=== PATIENT | female | born 1965 | race Two or more races ===

== ENCOUNTER 2024-08-11 00:35 | Emergency (ER) | payer OTHER ==
[~2024-08-11] VITALS: Ht 170.2 cm; Wt 75.7 kg
[2024-08-11] MEDS ORDERED: 0.9 % SODIUM CHLORIDE 1,000 ML IV STA (02:01)
[2024-08-11 03:09] LABS: HEMATOCRIT 36.2 % (36.0-45.00); HEMOGLOBIN 11.8 g/dL (12.0-15.00); MEAN CELL VOLUME 93.4 fL (80.00-100.00); MEAN CORPUSCULAR HEMOGLOBIN 30.4 pg (27.00-32.0); MEAN CORPUSCULAR HGB CONC 32.5 g/dl (32.0-36.0); PLATELET COUNT 210 K/uL (150-450); RED BLOOD COUNT 3.88 M/uL (4.00-6.00); RED CELL DISTRIBUTION WIDTH 14.2 % (11.5-14.5)
[2024-08-11 03:38] LABS: INR 1.01; PARTIAL THROMBOPLASTIN TIME 24.7 SECONDS (22.0-34.0)
[2024-08-11 03:56] LABS: ALBUMIN 3.4 gm/dL (3.4-5.0); BILIRUBIN TOTAL 0.44 mg/dL (0.3-1.2); CALCIUM 8.9 mg/dL (8.5-10.1); CREATININE SERUM 0.91 mg/dL (0.55-1.02); GFR 62.85; GLOBULINA 3.2 G/DL (2.4-3.5); POTASSIUM 5.19 mEq/L (3.5-5.1); TOTAL PROTEIN 6.6 gm/dL (6.4-8.2)
== END 2024-08-11 06:12 | disposition home or self-care (01) ==
LOC: ER 00:35
DX: R19.7 Diarrhea, unspecified (principal); E86.0 Dehydration; R55 Syncope and collapse; Z20.822 Contact with and (suspected) exposure to COVID-19